=== PATIENT | male | born 1990 | race Caucasian/White ===

== ENCOUNTER → 2024-11-20 | Outpatient (CLI) | payer OTHER, SELFPAY ==
[2024-11-20 10:20] LABS: Absolute Lymphocyte Count 1.57 X10^3/uL (0.83-4.51); Absolute Neutrophil Count 3.5 X10^3/uL (2.0-7.7); Basophil# 0.05 X10^3/uL; Basophil% 0.9 % (0-1); Eosinophil# 0.09 X10^3/uL; Eosinophils% 1.6 % (0-5); Hematocrit 44.1 % (40-54); Hemoglobin 15.3 g/dL (13.0-16.5); Lymphocyte # 1.57 X10^3/ul (0.83-4.51); Lymphocyte % 27.3 % (19-41); Mean Corp Hgb Conc 34.7 g/dL (32-36); Mean Corpuscular Hgb 29.9 pg (27.0-32.0); Mean Corpuscular Volume 86.1 fL (80-94); Monocyte# 0.47 X10^3/uL; Monocyte% 8.2 % (0-10); NRBC Flagged by Analyzer 0 % (0-5); Neutrophil # 3.52 X10^3/uL (2.7-7.7); Neutrophil % 61.1 % (47-70); Platelet Count 204 K/mm3 (150-450); RBC Distribution Width CV 12.6 % (11.6-14.6); RBC Distribution Width SD 39.3 fl (35.1-43.9); Red Blood Count 5.12 M/mm3 (4.6-6.2); White Blood Count 5.8 K/mm3 (4.4-11.0)
[2024-11-20 12:24] LABS: ALB/GLOB Ratio 1.9 RATIO (0.9-2.4); AST(SGOT) 21 U/L (<=37); Alanine Aminotransfer ALT/SGPT 33 U/L (<=46); Albumin, Serum 4.8 g/dL (3.5-5.0); Alkaline Phosphatase 33 U/L (40-129); Anion Gap 11 (5-15); BUN 15 mg/dL (4-19); BUN/Creat Ratio 13.9 RATIO (10-20); Calcium,Total 9.7 mg/dL (7.6-11.0); Carbon Dioxide 25.5 mmol/L (21.0-32.0); Chloride 103 mmol/L (98-108); Creatinine, Serum 1.07 mg/dL (0.70-1.20); EST Glomerular Filtration Rate 93 (>60); Globulin 2.5 g/dL (2.2-4.2); Glucose 111 mg/dL (70-99); Protein, Total 7.3 g/dL (5.9-8.4); Sodium Level 140 mmol/L (133-145); Total Bilirubin 0.41 mg/dL (0.00-1.30)
== END | disposition home or self-care (01) ==
LOC: MTLAB 09:03
PROVIDERS: Referring Provider Podiatrist Foot & Ankle Surgery; Visit Provider Podiatrist Foot & Ankle Surgery
DX: B35.1 Tinea unguium (principal)
CPT/HCPCS: 36415; 80053; 85025

== ENCOUNTER 2024-12-18 14:15 | Emergency (ER) | payer OTHER, SELFPAY ==
[2024-12-18 14:16] VITALS: BP 115/71; PULSE 76; RESP 16; TEMP 36.3; O2SAT 99
--- NOTE | 2024-12-18 14:37 | EX.ED.UPPERE ---
HPI History of Present Illness Chief Complaint: Occup Expose Narrative Narrative: Chief complaint and HPI: Right pointer finger injury. 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 Patient was in surgery when he accidentally injured his right pointer finger with a dirty surgical instrument. Patient states that he immediately cleaned the area. Presented here for post exposure labs. Source patient does not have any history of hepatitis or HIV known. Patient up-to-date on vaccines. Review of systems: See HPI Medications: As listed on the chart Allergies: As listed on the chart PFSH: Per chart Vital signs: As listed on the chart. Reviewed. Physical exam: Gen: A&O x3, NAD Head: Normocephalic, atraumatic Eyes: No sclera icterus, conjunctiva clear ENT: Moist mucous membranes CV: Regular rate Resp: Nonlabored respirations Musc: Full range of motion of the right upper extremity including the wrist /hand/fingers, there is a small abrasion to the fingertip of the right pointer finger from injury, no active bleeding, no erythema/warmth/drainage, radial pulse +2, good capillary refill, sensation intact Neuro: Alert, oriented, grossly intact Psych: Cooperative, appropriate mood and affect [facility] Home Medications ?Medication ?Instructions ?Recorded ?Last Taken ?Type meloxicam 15 mg tablet 15 mg PO DAILY 1 month #30 tabs 12/18/24 Unknown Rx Allergy/AdvReac Type Severity Reaction Status Date / Time No Known Allergies Allergy Verified 12/18/24 14:19 EXAM Physical Exam Const Vital Signs: 12/18/24 14:16 Temperature 97.4 F L Temperature Source Oral Pulse Rate 76 Respiratory Rate 16 Blood Pressure 115/71 Blood Pressure Mean 85 Pulse Ox 99 Oxygen Delivery Method Room Air MDM MDM MDM Narrative Medical decision making narrative: 34-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 Patient was in surgery when he accidentally injured his right pointer finger with a dirty surgical instrument. Area was immediately cleaned. Presented here for postexposure labs. Source labs were obtained by OR. Source patient does not have any history of hepatitis or HIV. Patient is up-to-date on vaccines. See physical exam findings. No prophylaxis needed at this time however did obtain exposure labs. Patient is to follow-up with Worker's Compensation. Monitor for signs of infection. He confirmed understanding of the plan. Patient stable to discharge home. Impression: 1. Exposure at work 2. Right pointer finger abrasion secondary to dirty surgical instrument Discharge Plan Triage Chief Complaint: Occup Expose ED Provider: Micah Monte Dx/Rx/DC Orders Clinical Impression: Occupational exposure in workplace, Injury of finger Instructions: Understanding Bloodborne Pathogens Prescriptions: No Action meloxicam 15 mg tablet 15 mg PO DAILY 30 Days Qty: 30 0RF Primary Care Provider: IRAIDA BEE Referrals: [facility] [Provider Group] - 3-5 Days Activity Restrictions/Additional Instructions: Follow-up with Worker's Compensation. Monitor for signs of infection. Return back to the ED if symptoms change or worsen. Print Language: [place] Disposition Disposition: Home, Self Care
[2024-12-18 14:49] VITALS: BP 111/70; PULSE 66; RESP 12; TEMP 36.6; O2SAT 100
[2024-12-18 15:43] LABS: HIV Nonreactive (Nonreactive); Hepatitis B Surface Antigen Nonreactive (Nonreactive); Hepatitis C Antibody Nonreactive (Nonreactive)
[2024-12-18 15:47] LABS: Hepatitis B Surface Antibody Nonreactive
== END 2024-12-18 14:51 | disposition home or self-care (01) ==
PROVIDERS: Emergency Provider Surgery; Visit Provider Surgery
DX: S60.410A Abrasion of right index finger, initial encounter (principal); W46.1XXA Contact with contaminated hypodermic needle, initial encounter; Y92.239 Unspecified place in hospital as the place of occurrence of the external cause
CPT/HCPCS: 86703; 86706; 86803; 87340; 99283